=== PATIENT | male | born 2000 | race Caucasian/White ===

== ENCOUNTER 2018-10-28 21:07 | Emergency (ER) | payer OTHER ==
[2018-10-28 21:12] VITALS: BP 133/80
--- NOTE | 2018-10-28 21:17 | EDPHY ---
H & P Stated Complaint: LAC R 4TH FINGER/CUT W/ PUTTY KNIFE Time Seen by Provider: 10/28/18 21:13 HPI/ROS: HPI: This is a 17-year-old male who presents with Chief Complaint: right ring finger laceration Location:right ring finger, distal Quality: injury Duration: sudden Signs and Symptoms: + bleeding, no radiation, no numbness, no weakness, no tingling, no incontinence, no decreased range of motion, no swelling, + pain, no fever Timing: half our prior to arrival Severity: 4 Context: Patient presents with a right ring finger laceration. Patient states he was pulling something off of a 3D printer when it stuck and sliced his finger. patient states that it started bleeding right away and he was able to pull it apart, at which point he became nervous and drove to the ED. Denies radiation, weakness, decreased range of motion, paresthesias. Tetanus is up-to- date. Modifying Factors: Applied direct pressure Comment: ROS: A comprehensive 10 system review of systems is otherwise negative aside from elements mentioned in the history of present illness. MEDICAL/SURGICAL/SOCIAL HISTORY: Medical history: ESOPHAGELITIS, 2 BULGING DISCS, FX L5 Surgical history: Herniorrhaphy Social history: Denies tobacco use. CONSTITUTIONAL: anxious appearing white teenage male with blue colored hair, awake and alert, nontoxic-appearing HEENT: Atraumatic and normocephalic, PERRL, EOMI. Nares patent; no rhinorrhea; no nasal mucosal edema. Tympanic membranes clear. Oropharynx clear, no exudate and moist pink mucosa. Airway patent. No lymphadenopathy. No meningismus. Cardiovascular: Normal S1/S2, regular rate, regular rhythm, without murmur rub or gallop. PULMONARY/CHEST: Symmetrical and nontender. Clear to auscultation bilaterally. Good air movement. No accessory muscle usage. ABDOMEN: Soft, nondistended, nontender, no rebound, no guarding, no peritoneal signs, no masses or organomegaly. No CVAT. EXTREMITIES: 2/2 pulses, strength 5/5, right ring finger on the pad shows pinpoint puncture wound that is superficial with no active bleeding. No nail involvement. DI P/PIP and MCP joints have full range of flexion and extension. Light touch sensation intact. no deformities, no clubbing, no cyanosis or edema. NEUROLOGICAL: no focal neuro deficits. GCS 15. SKIN: Warm and dry, no erythema. no rash. Good capillary refill. Source: Patient Exam Limitations: No limitations - Personal History Current Tetanus Diphtheria and Acellular Pertussis (TDAP): Yes - Medical/Surgical History Other PMH: HERNIA SX, ESOPHAGELITIS, 2 BULGING DISCS, FX L5 Constitutional: Initial Vital Signs Temperature (C) 37.6 C 10/28/18 21:10 Heart Rate 117 H 10/28/18 21:10 Respiratory Rate 16 10/28/18 21:10 Blood Pressure 133/80 H 10/28/18 21:10 O2 Sat (%) 95 10/28/18 21:10 O2 Delivery Mode Room Air Allergies/Adverse Reactions: peanut Allergy (Verified 10/28/18 21:18) Home Medications: Medication Instructions Recorded Flovent 110 MCG Hfa MDI (*) 10/28/18 Singulair 10/28/18 ZYRTEC 10/28/18 Medical Decision Making ED Course/Re-evaluation: Vital signs reviewed and show mild tachycardia consistent with anxiety. Tetanus is up-to-date. Let topical applied and irrigated copiously. Steri-Strips placed. No indication for sutures. Verbal and written wound care instructions provided No signs of neurovascular compromise/tenting of skin/compartment syndrome/ extremities and joints examined above and below area of concern and are neurovascularly intact. This patient was seen under the supervision of my secondary supervising physician. I evaluated care for this patient with attending. Differential Diagnosis: Differential diagnosis includes but is not limited to laceration, abrasion, skin avulsion, nail injury, tendon injury, nerve injury. Departure - Departure Disposition: Home, Routine, Self-Care Clinical Impression: Abrasion of right ring finger, initial encounter Condition: Good Instructions: Abrasion (ED) Additional Instructions: Keep the area dry for 48 hours. After 48 hours, you may wash the site daily with mild soap and water; then pat dry. Allow Steri-Strips to fall off on their own. Do not soak in a bathtub or go swimming until sutures are removed. Take Tylenol 650 mg every 4 hours and/or Ibuprofen 600 mg every 8 hours with food as needed for pain. Referrals: Tee Martinez MD [Medical Doctor] - Follow Up Only If Needed
== END 2018-10-28 21:46 | disposition home or self-care (01) ==
DX: S60.414A Abrasion of right ring finger, initial encounter (principal); W26.8XXA Contact with other sharp object(s), not elsewhere classified, initial encounter